=== PATIENT | female | born 1965 | race Caucasian/White ===

== ENCOUNTER 2016-09-11 22:00 | Outpatient (CLI) | payer OTHER ==
[2015-06-02 08:36] VITALS: BMI 28.8
[2016-09-11 23:49] LABS: BASOPHILS # (AUTO) 0.1 K/uL (0-0.2); BASOPHILS % (AUTO) 0.8 % (0.0-3.0); EOSINOPHILS # (AUTO) 0.5 K/ul (0.0-0.7); EOSINOPHILS % (AUTO) 6.6 % (0.0-7.0); HEMOGLOBIN 13.6 g/dl (12.0-16.0); IMMATURE GRANULOCYTE % (AUTO) 0.1 % (0.0-5.0); LYMPHOCYTES # (AUTO) 4.2 K/uL (0.60-3.4); LYMPHOCYTES % (AUTO) 56.7 (10.0-50.0); MEAN CORPUSCULAR HEMOGLOBIN 31.7 pg (27.0-31.0); MEAN CORPUSCULAR VOLUME 93.2 fl (81.0-99.0); MONOCYTES # (AUTO) 0.7 K/uL (0.4-2.0); MONOCYTES % (AUTO) 9.4 (0-10); NEUTROPHILS # (AUTO) 1.9 K/ul (2.0-6.9); NEUTROPHILS % (AUTO) 26.4; PLATELET COUNT 298 10^3/uL (140-440); RED BLOOD COUNT 4.29 10^6/ul (4.20-5.40); WHITE BLOOD COUNT 7.32 K/ul (4.6-10.2)
[2016-09-12 00:31] LABS: ALBUMIN 3.7 g/dL (3.4-5.0); ALBUMIN/GLOBULIN RATIO 0.97; ANION GAP 10.7; BILIRUBIN,TOTAL 0.56 mg/dL (0.00-1.20); CALCIUM 9.4 mg/dL (8.2-10.2); CHOL/HDL RATIO 3.3 (4.5-5.5); CREATININE 1.2 mg/dL (0.60-1.30); POTASSIUM 3.7 mmol/L (3.5-5.10); TOTAL PROTEIN 7.5 g/dL (6.4-8.2)
== END 2016-09-11 22:01 | disposition home or self-care (01) ==
LOC: LAB 22:00
PROVIDERS: ATTEND Family Medicine
DX: C73 Malignant neoplasm of thyroid gland (principal); E78.2 Mixed hyperlipidemia
CPT/HCPCS: 36415; 80053; 80061; 84443; 85025

== ENCOUNTER 2016-09-18 08:46 | Outpatient (CLI) ==
[2015-06-02 08:36] VITALS: BMI 28.8
--- NOTE | 2016-09-18 10:49 | MRI ---
EXAM: Brain MRI without contrast. HISTORY: Worsening headaches. Cancer history. COMPARISON: Brain MRI 02/11/2010. TECHNIQUE: Multiplanar, multisequence MR images were acquired of the brain without contrast. FINDINGS: The midline structures are central and the craniocervical junction is unremarkable. The ventricles and sulci are normal in size and configuration. There are no abnormal extra-axial fluid collections. The brain parenchyma has no diffusion restriction to suggest acute hypoperfusion or infarction. The re are a few T2 hyperintensities in the supratentorial white matter unchanged from the previous MRI consistent with minor leukomalacia. Contrast was not administered and minor or subtle lesions may b e missed. The corpus callosum is normal. The pituitary gland is unremarkable and the posterior pitu itary bright spot is normally located. There are no intraorbital masses. Paranasal sinuses, middle ears and mastoids are unremarkable. Flow voids are present in the major intracranial arteries. There is a dominant right posterior comm unicating artery. Dural venous sinuses are patent. IMPRESSION: 1. No change minor leukomalacia which is nonspecific. 2. No intracranial mass, hemorrhage or acute cerebral infarct.
--- NOTE | 2016-09-18 23:27 | MRI ---
EXAM: Cervical spine MRI without contrast. HISTORY: Neck pain and worsening headaches. Cancer history. COMPARISON: Cervical spine radiographs 07/14/2007. TECHNIQUE: Multiplanar, multisequence MR images were acquired cervical spine without contrast. FINDINGS: The craniocervical junction is unremarkable and the cervical cord has normal signal inten sity. There is minor mid cervical dextroscoliosis and mild cervicothoracic levoscoliosis centered a t T2-3. There is straightening of the usual cervical lordosis and 1 mm retrolisthesis of C5 on C6. The cervical vertebra are normal in height and intrinsic bone marrow signal. There is minor ventra l spondylosis and disc space narrowing at C5-6. Canal diameter is developmentally narrow. There ar e no paravertebral masses. The visualized lung apices are clear. C2-3: There is a posterior disc osteophyte complex that is asymmetric to the left with a small more focal left posterolateral component that merges with left uncovertebral hypertrophy. This mildly e ffaces the left anterior subarachnoid space and causes minor left neural foraminal stenosis. C3-4: There is a posterior disc osteophyte complex that is asymmetric to the left and left uncovert ebral hypertrophy with minor left neural foraminal stenosis. There is no central canal stenosis. C4-5: There is a mild disc bulge and a small central disc protrusion that contacts the ventral cerv ical cord. There is no central canal stenosis. C5-6: There is a posterior disc osteophyte complex with a small to moderate central disc protrusion that mildly indents the cervical cord without edema. There is mild spinal stenosis. AP diameter o f the thecal sac is 8 mm. C6-7: There is a mild disc bulge with a small central disc protrusion that is slightly asymmetric t o the right and ligamentum flavum hypertrophy with minor spinal stenosis. AP diameter of the thecal sac is 9.6 mm. C7-T1: There is a minor disc bulge. On the axial sections, there is a punctate focus of slightly b right T1 and T2 signal along the midline margin of the disc that may represent a tiny calcification of the annulus or posterior longitudinal ligament. There is no central canal stenosis or foraminal stenosis. IMPRESSION: 1. Mild cervical degenerative spondylosis with mild spinal stenosis at C5-6 and minor stenosis at C 6-7. 2. Small central disc protrusions C4-5 and C6-7. 3. Mild diffuse disc osteophyte complex C5-6 with small to moderate central disc protrusion that mi ldly indents the cord without edema.
== END 2016-09-18 08:47 | disposition home or self-care (01) ==
LOC: RAD 08:46
PROVIDERS: ATTEND Family Medicine
DX: R51 Headache (principal); M54.2 Cervicalgia; Z85.9 Personal history of malignant neoplasm, unspecified

== ENCOUNTER 2016-12-04 23:22 | Outpatient (CLI) | payer OTHER ==
[2015-06-02 08:36] VITALS: BMI 28.8
[2016-12-04 23:58] LABS: BASOPHILS # (AUTO) 0.1 K/uL (0-0.2); BASOPHILS % (AUTO) 0.5 % (0.0-3.0); EOSINOPHILS # (AUTO) 0.2 K/ul (0.0-0.7); EOSINOPHILS % (AUTO) 1.3 % (0.0-7.0); HEMATOCRIT 40.7 % (37.0-47.0); HEMOGLOBIN 13.9 g/dl (12.0-16.0); IMMATURE GRANULOCYTE % (AUTO) 0.1 % (0.0-5.0); LYMPHOCYTES # (AUTO) 10.1 K/uL (0.60-3.4); MEAN CORPUSCULAR HEMOGLOBIN 31.5 pg (27.0-31.0); MEAN CORPUSCULAR HGB CONC 34.2 (31.8-35.4); MEAN CORPUSCULAR VOLUME 92.3 fl (81.0-99.0); MONOCYTES # (AUTO) 0.7 K/uL (0.4-2.0); MONOCYTES % (AUTO) 5.1 (0-10); NEUTROPHILS # (AUTO) 2.4 K/ul (2.0-6.9); PLATELET COUNT 240 10^3/uL (140-440); RED BLOOD COUNT 4.41 10^6/ul (4.20-5.40); WHITE BLOOD COUNT 13.44 K/ul (4.6-10.2)
[2016-12-05 00:34] LABS: ALBUMIN 3.4 g/dL (3.4-5.0); ALBUMIN/GLOBULIN RATIO 0.97; ANION GAP 11.4; BILIRUBIN,TOTAL 0.39 mg/dL (0.00-1.20); CREATININE 1.2 mg/dL (0.60-1.30); POTASSIUM 3.4 mmol/L (3.5-5.10); TOTAL PROTEIN 6.9 g/dL (6.4-8.2)
[2016-12-08 08:31] LABS: CARCINOEMBRYONIC ANTIGEN 1.4 ng/mL (0.0-4.7)
[2016-12-09 08:39] LABS: THYROGLOBULIN ANTIBODY <1.0 IU/mL (0.0-0.9); THYROGLOBULIN BY IMA <0.1 ng/mL (1.5-38.5)
== END 2016-12-04 23:23 | disposition home or self-care (01) ==
LOC: LAB 23:22
PROVIDERS: ATTEND Specialist
DX: Z85.3 Personal history of malignant neoplasm of breast (principal); Z85.71 Personal history of Hodgkin lymphoma; Z85.850 Personal history of malignant neoplasm of thyroid; Z79.811 Long term (current) use of aromatase inhibitors
CPT/HCPCS: 36415; 80053; 82232; 82378; 83615; 84443; 85025; 86300; 86800

== ENCOUNTER 2016-12-24 07:23 | Outpatient (CLI) | payer OTHER ==
[2015-06-02 08:36] VITALS: BMI 28.8
--- NOTE | 2016-12-24 12:52 | NM ---
EXAM: Whole body bone scan HISTORY: Carcinoma breast and thyroid, Hodgkin's lymphoma COMPARISON: None of this type TECHNIQUE: Anterior and posterior whole body bone scans were obtained following the intravenous admi nistration of 26.5 millicurie of technetium 99m HDP, followed by spot views of areas of interest. FINDINGS: No definite abnormal focus of increased or decreased isotope activity is identified involv ing any part of the skeletal system. Kidneys and soft tissues are normal. IMPRESSION: Normal study
== END 2016-12-24 07:24 | disposition home or self-care (01) ==
LOC: RAD 07:23
PROVIDERS: ATTEND Specialist
DX: R97.8 Other abnormal tumor markers (principal); C50.411 Malignant neoplasm of upper-outer quadrant of right female breast; Z85.850 Personal history of malignant neoplasm of thyroid; Z85.71 Personal history of Hodgkin lymphoma

== ENCOUNTER 2016-12-29 07:21 | Outpatient (CLI) ==
[2015-06-02 08:36] VITALS: BMI 28.8
--- NOTE | 2016-12-29 08:43 | CT ---
EXAM: CT soft tissue neck with contrast. HISTORY: Non-Hodgkins lymphoma. COMPARISON: Cervical spine MRI 09/18/2016. TECHNIQUE: Multiple axial images of the neck were obtained following intravenous administration of 100 mL of Visipaque 320, low osmolar. Images were reformatted in the sagittal and coronal plane. FINDINGS: No intracranial intraorbital abnormality identified. The parotid and submandibular glands are unremarkable. Pharyngeal soft tissues, epiglottis and kevin ngeal structures are unremarkable. 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 No old lymphadenopathy, subcutaneous e virgil or fluid collections identified. Vascular structures of the neck pain. Lung apices are clear. No acute osseous abnormality identified. IMPRESSION: No evidence for lymphadenopathy within the neck.
--- NOTE | 2016-12-29 08:43 | CT ---
EXAM: CT of the abdomen and pelvis with contrast History: Non-Hodgkins lymphoma, history of breast and thyroid cancer. Comparison: Chest CT 12/29/2016 Technique: Multiplanar CT images through the abdomen pelvis were obtained following administration of IV and enteric contrast Findings: Partially visualized bilateral breast implants. Lung bases are free of consolidation. N o acute osseous abnormalities. Bilateral L5 pars defects with grade 1 spondylolisthesis of L5 on S1. Moderate to severe degenerative disc disease at L5-L1. No discrete gallstones identified by CT. Spleen is absent. No focal liver lesions. Surgical clips s een within the upper abdomen. No pancreatic lesions. Adrenal glands are unremarkable. No renal ma sses. No bowel obstruction. No bladder wall thickening. Intrauterine device is seen in place. Th ere is a large heterogeneous intrauterine mass surrounding the intrauterine device measuring 5.2 cm x 3.8 cm. No perirectal inflammation. No free air. No ascites. 2.9 cm x 2.0 cm left ovarian cyst ic lesion. No pathologically enlarged lymph nodes. Impression: 1. Abnormal heterogeneous intrauterine mass could be malignant or infectious. This is surrounding the intrauterine device. Correlate with pelvic ultrasound. 2. Left ovarian cystic lesion can also be correlated with pelvic ultrasound. 3. Other findings as detailed above.
--- NOTE | 2016-12-29 08:43 | CT ---
EXAM: CT chest with contrast. HISTORY: Non-Hodgkins lymphoma. History of breast and thyroid cancer. COMPARISON: None TECHNIQUE: Routine axial CT images of the chest were obtained without contrast. FINDINGS: The lungs are well aerated and clear. There is no focal consolidation to suggest pneumon ia, pulmonary edema. No lung nodules or masses identified. No pleural effusion or pneumothorax is seen. No central endobronchial lesions are identified. Heart size is within normal limits. There is no pericardial effusion. Aorta is normal in caliber. The mediastinum and hilar regions, demonstrate no evidence of lymphadenopathy. No lymphadenopathy i s identified within the hilar regions. The osseous structures of the thorax demonstrate no focal lytic or blastic lesions. Bilateral breas t implants are noted. Otherwise the locoregional soft tissue structures are unremarkable. Included views of the upper abdominal structures demonstrate no acute abnormality or free fluid. IMPRESSION: 1. No pulmonary nodules, pulmonary mass or thoracic lymphadenopathy.
== END 2016-12-29 07:22 | disposition home or self-care (01) ==
LOC: RAD 07:21
PROVIDERS: ATTEND Specialist
DX: C50.411 Malignant neoplasm of upper-outer quadrant of right female breast (principal); R97.8 Other abnormal tumor markers; Z85.850 Personal history of malignant neoplasm of thyroid; Z85.71 Personal history of Hodgkin lymphoma

== ENCOUNTER 2017-01-09 14:03 | Outpatient (CLI) ==
[2015-06-02 08:36] VITALS: BMI 28.8
--- NOTE | 2017-01-09 14:50 | US ---
EXAM: Transvaginal pelvic ultrasound. History: Intrauterine mass. Comparison: CT abdomen pelvis 12/29/2016 Technique: Multiple sonographic images through the pelvis were obtained. Color duplex Doppler was used to interrogate vascular flow. Findings: Uterus measures 10 cm x 5 cm x 6 cm. Irregular thickened endometrium measuring 4.3 cm. Neither ova ry was seen. No pelvic free fluid. Impression: Endometrial mass suspicious for malignancy, although it could be related to tamoxifen t herapy. Further evaluation recommended.
== END 2017-01-09 14:04 | disposition home or self-care (01) ==
LOC: RAD 14:03
PROVIDERS: ATTEND Specialist
DX: R19.07 Generalized intra-abdominal and pelvic swelling, mass and lump (principal)

== ENCOUNTER 2017-01-26 08:49 | Outpatient (CLI) ==
[2015-06-02 08:36] VITALS: BMI 28.8
--- NOTE | 2017-01-26 09:12 | DI ---
EXAM: Two views of the chest. History: Chest wall pain. Comparison: Chest radiograph 06/02/2015 Findings: Heart size is normal. No focal consolidation. Atherosclerotic vascular calcifications. No appreciable pleural fluid and no pneumothorax. No acute osseous abnormalities. Impression: No acute cardiopulmonary process. No change compared to the prior study.
== END 2017-01-26 08:50 | disposition home or self-care (01) ==
LOC: LAB 08:49
PROVIDERS: ATTEND Family Medicine
DX: R07.89 Other chest pain (principal)
CPT/HCPCS: 36415; 85379; 93005; 93010

== ENCOUNTER 2018-12-08 20:56 | Outpatient (CLI) ==
[2015-06-02 08:36] VITALS: BMI 28.8
== END 2018-12-08 20:57 | disposition home or self-care (01) ==
LOC: LAB 20:56
PROVIDERS: ATTEND Family Medicine
DX: E78.2 Mixed hyperlipidemia (principal)
CPT/HCPCS: 36415; 80053; 80061; 84443; 85025